=== PATIENT | male | born 1950 | race Caucasian/White ===

== ENCOUNTER 2023-04-19 00:25 | Day surgery (SDC) | payer OTHER, SELFPAY ==
[2023-03-22 08:46] VITALS: BMI 25.9
--- NOTE | 2023-04-16 10:53 | SUR.PREOP ---
Patient called regarding upcoming procedure. Voicemail left regarding appointment times.
--- NOTE | 2023-04-16 13:14 | PM.HPGS ---
History of Present Illness History of Present Illness Consent: Risks, benefits, and alternatives have been discussed and questions answered. Patient agrees to proceed with procedure. Chief complaint: history of colon polyps Narrative: Rashi Montaño is a 72 year old male with a history of colon polyps. None were seen at time of his last colonoscopy 7 years ago. Review of Systems Review of Systems: All systems reviewed & are unremarkable except as noted in HPI and below PMFSH Social History Social History Smoking status: Never smoker Substance use type: does not use Living arrangements: with family Spiritual care concerns: No Meds Home Medications and Allergies Home Medications Medication Instructions Recorded Confirmed Type aspirin 81 mg tablet,delayed 81 mg PO DAILY 03/19/23 04/19/23 History release glimepiride 2 mg tablet 2 mg PO DAILY 03/19/23 04/19/23 History lisinopril 10 mg tablet 10 mg PO DAILY 03/19/23 04/19/23 History metformin 1,000 mg tablet 1,000 mg PO BID 03/19/23 04/19/23 History rosuvastatin 20 mg tablet 20 mg PO DAILY 03/19/23 04/19/23 History Allergies Allergy/AdvReac Type Severity Reaction Status Date / Time NKDA Allergy Unknown Unknown Uncoded 04/19/23 07:30 Exam Resp: Auscultation: clear to auscultation bilaterally Cardio: Rate: regular rate Rhythm: regular rhythm GI: GI Palp: Yes Soft to palpation and No Tenderness to palpation present (GI) Assessment and Plan Assessment and plan (1) Colon cancer screening: Code(s): Z12.11 - Encounter for screening for malignant neoplasm of colon Status: Acute Assessment and Plan: Colonoscopy with possible biopsy or polypectomy or cautery or injection of substances.
[2023-04-19 07:33] VITALS: BP 116/71; PULSE 78; RESP 16; TEMP 35.9; O2SAT 98
[2023-04-19 07:44] LABS: Glucose Point of Care 152 mg/dl (65-105)
[2023-04-19] MEDS: LACTATED RINGERS 1,000 ML 150 ML IV CONT (07:44)
--- NOTE | 2023-04-19 08:03 | WPDANESEPPF ---
Anes - Initial Pre Proc Eval Procedure: Operation Date: 04/19/23 08:30 Proposed Procedures p Colonoscopy - Bud Poole MD Date/Time: 04/19/23 08:03 Surgeon: Bud Poole MD Pre Op Diagnosis: history of colon polyps Patient Data Age: 72 Gender: M Height: 1.75 m Weight: 79.7 kg Last Vital Signs Temp 96.7 F L 04/19/23 07:33 Pulse 78 04/19/23 07:33 Resp 16 04/19/23 07:33 BP 116/71 04/19/23 07:33 Pulse Ox 98 04/19/23 07:33 O2 Del Method Room Air 04/19/23 07:33 Allergies Allergy/AdvReac Type Severity Reaction Status Date / Time NKDA Allergy Unknown Unknown Uncoded 04/19/23 07:30 Home Medications Medication Instructions Recorded Confirmed Type aspirin 81 mg tablet,delayed 81 mg PO DAILY 03/19/23 04/19/23 History release glimepiride 2 mg tablet 2 mg PO DAILY 03/19/23 04/19/23 History lisinopril 10 mg tablet 10 mg PO DAILY 03/19/23 04/19/23 History metformin 1,000 mg tablet 1,000 mg PO BID 03/19/23 04/19/23 History rosuvastatin 20 mg tablet 20 mg PO DAILY 03/19/23 04/19/23 History Laboratory Tests 04/19/23 07:41 POC Capillary Glucose 152 H mg/dl (65-105) Patient hx anesthesia problems: none Family hx anesthesia problems: none Results Review: All pre-operative results and documents have been reviewed as part of the pre-operative evaluation. [facility] Social History Social History Smoking status: Never smoker Substance use type: does not use Living arrangements: with family Spiritual care concerns: No Anes - Eval Final PreProcedure Day of Procedure 04/19/23 08:03 Patient weight: normal Heart: regular rate and rhythm Lungs: clear to auscultation Airway: Mallampati scale class II Neurological: alert and oriented Last oral intake: >/= 8 hours ASA classification: III Emergent: no Anesthetic plan: proceed Anesthesia type and monitoring: general GIVS and standard monitoring Results Review: All pre-operative results and documents have been reviewed as part of the pre-operative evaluation. Informed Consent: The patient's anesthetic plan and its attendant risks and benefits were discussed with the patient/family/POA. Questions were solicited and answers provided to the satisfaction of the patient/family/POA.
[2023-04-19 08:35] VITALS: BP 91/53; PULSE 82; RESP 19; O2SAT 98
[2023-04-19 08:45] VITALS: BP 101/61; PULSE 63; RESP 20; O2SAT 99
[2023-04-19 08:55] VITALS: BP 111/62; PULSE 71; RESP 19; O2SAT 99
== END 2023-04-19 09:02 | disposition home or self-care (01) ==
PROVIDERS: PCP Family Medicine; Visit Provider Internal Medicine Gastroenterology
PROC: 0DJD8ZZ Inspection of Lower Intestinal Tract, Via Natural or Artificial Opening Endoscopic (ICD-10-PCS; CPT 45378; principal; 2023-04-19 08:30)
DX: Z12.11 Encounter for screening for malignant neoplasm of colon (principal); Z86.010 Personal history of colon polyps; K57.30 Diverticulosis of large intestine without perforation or abscess without bleeding
CPT/HCPCS: 45378; 82948; J2704; J7120